=== PATIENT | male | born 1955 | race Two or more races ===

== ENCOUNTER 2025-01-09 00:54 | Emergency (ER) | payer OTHER ==
[~2025-01-09] VITALS: Ht 167.6 cm; Wt 77.0 kg
[~2025-01-09 00:54] MED LIST: LISINOPRIL; METOPROLOL; SIMVISTATIN
[2025-01-09 00:56] VITALS: TEMP 36.8; O2SAT 97
[2025-01-09 02:27] VITALS: BP 162/68; PULSE 67; RESP 18
[2025-01-09] MEDS: KETOROLAC 30MG/ML VIAL IV STA (02:27)
[2025-01-09 02:58] LABS: CHLORIDE 109 mEq/L (98-107); SODIUM 142 mEq/L (136-145)
[2025-01-09 02:59] LABS: CARBON DIOXIDE 25 mEq/L (21-32)
[2025-01-09 03:04] LABS: CREATININE 1.1 mg/dL (0.6-1.3); GLUCOSE 120 mg/dL (70-105); UREA NITROGEN BLOOD 20 mg/dL (9-23)
[2025-01-09 03:33] LABS: BASOPHILS % 0.2 % (0.0-2.0); HEMATOCRIT. 46.1 % (42.0-52.0); HEMOGLOBIN. 15.1 g/dL (14.0-18.0); LYMPHOCYTES % 10.8 % (20.0-50.0); MEAN CORPUSCULAR HGB CONC 32.8 g/dL (31.0-37.0); MEAN CORPUSCULAR VOLUME 85.5 fL (80.0-94.0); MEAN PLATELET VOLUME 7.4 fl (7.4-10.4); MONOCYTES % 10.4 % (2.0-8.0); NEUTROPHILS % 78.6 % (40.0-76.0); PLATELET 420 x1000/uL (130-400); RED BLOOD CELL COUNT 5.39 mill/uL (4.7-6.1); RED CELL DISTRIBUTION WIDTH 15.9 % (11.6-14.6); WHITE BLOOD COUNT 12.1 x1000/uL (4.5-11.0)
[2025-01-09] MEDS ORDERED: IBUP-2029 MT (05:27)
[2025-01-09] MEDS ORDERED: GABA300C MT (05:27)
== END 2025-01-09 11:55 | disposition home or self-care (01) ==
LOC: ER 00:54 → CANBEDREQ 09:05 → ER 11:55
DX: E11.40 Type 2 diabetes mellitus with diabetic neuropathy, unspecified (principal); J44.9 Chronic obstructive pulmonary disease, unspecified
CPT/HCPCS: 99285; 93970; 96374; 80048; 83880; 83605; 85025; 36415; J1885